=== PATIENT | female | born 1995 | race Hispanic/Latino ===

== ENCOUNTER → 2024-02-17 | Outpatient (CLI) | payer MEDICAID ==
--- NOTE | 2024-02-21 09:17 | HMCSR ---
APPROVED REPORT EXAM: Two-dimensional and M-mode echocardiogram with Doppler and color Doppler. 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's Syndrome 2D Dimensions RVDd3.4 cmLVEF(%)61.4 (>50%)LVED Vol(simp.)87.0 mL IVSd0.8 (0.7-1.1cm)FS(%)33 %LVES Vol(simp.)34.0 mL LVDd4.0 (3.8-5.6cm)LA (2D)3.7 (1.6-4.0cm)LVEF(%, simp.)61 % PWd0.9 (0.7-1.1cm)Ao Root(2D)2.8 (2.0-3.7cm)LA ESV INDEX (4CH)26.30 mL/m2 IVSs1.0 cmLVOT diam2.0 (1.8-2.4cm)LA ESV INDEX (2CH)21.60 mL/m2 LVDs2.7 (2.5-4.0cm)IVC diam1.4 cmLA ESV INDEX (BP)23.50 mL/m2 PWs1.4 cm M-Mode Dimensions EPSS0.8 cm LA (MM)4.1 (1.6-4.0cm) Ao Root(MM)2.5 (2.0-3.7cm) Aortic Valve AoV VTI0.3 mAo Mean GR6.0 mmHgLVOT VTI0.20 m JOSE (VMAX)2.0 cm2AVA (VTI) 2.0 cm2 Mitral Valve MV E Vmax59.7 cm/sDECEL [id number] ms MV A Vmax39.5 cm/sP 1/2 T81 ms E/A ratio1.5MVA (PHT)2.7 cm2 TDI E/E' Medial9.2E/E' Lateral7.5 Medial E' Peak V6.50 cm/sLateral E' Peak V8.00 cm/s Pulmonary Valve PV VTI0.20 mPV Mean GR3 mmHg Tricuspid Valve TR Vmax2.0 m/sRAP (EST) 3 [id number] mmHg TR Peak GR16.0 mmHg Left Ventricle The left ventricle structure and function is normal. There is normal left ventricular wall thickness. LVEF is 60-65%. The left ventricular diastolic function is normal. Right Ventricle The right ventricle is normal size. The right ventricular systolic function is normal. Atria The left atrium size is normal. The right atrium size is normal. Aortic Valve The aortic valve is normal in structure and function. Aortic valve is trileaflet. No aortic regurgita tion is present. There is no aortic valvular stenosis. Mitral Valve Anterior mitral valve leaflet is prolapsed. Mitral valve leaflets open well. There is no mitral valve regurgitation noted. There is no mitral valve stenosis. Tricuspid Valve The tricuspid valve is normal in structure and function. There is trace tricuspid valve regurgitation noted. Pulmonic Valve The pulmonary valve is normal in structure and function. There is trace pulmonic valvular regurgitati on. Great Vessels The aortic root is normal in size. It measures 2.8cm at the level of the sinuses of valsalva. It kristel ures 2.67cm at the proximal ascending aorta. The IVC is normal in size and collapses >50% with inspir ation. Pericardium No pericardial effusion. Other Information Quality : GoodRhythm : NSR Conclusion The left ventricle structure and function is normal. LVEF is 60-65%. The left ventricular diastolic function is normal. The aortic root is normal in size. It measures 2.8cm at the level of the sinuses of valsalva. It kristel ures 2.67cm at the proximal ascending aorta.
== END | disposition home or self-care (01) ==
LOC: SHCH 10:54
PROVIDERS: ATTEND Internal Medicine
DX: Q87.40 Marfan syndrome, unspecified (principal)
CPT/HCPCS: 93306